=== PATIENT | female | born 1990 | race Caucasian/White ===

== ENCOUNTER 2017-05-18 19:47 | Emergency (ER) | payer BC ==
[~2017-05-18] VITALS: Wt 47.2 kg
[2017-05-18 20:08] LABS: BILIRUBIN NEGATIVE (NEGATIVE); BLOOD 1+ (NEGATIVE); CLARITY CLOUDY (CLEAR); COLOR YELLOW (YELLOW); GLUCOSE NEGATIVE (NEGATIVE); KETONE NEGATIVE (NEGATIVE); LEUKO ESTERASE TRACE (NEGATIVE); NITRITE POSITIVE (NEGATIVE); PROTEIN TRACE (NEGATIVE); SPECIFIC GRAVITY 1.015 (1.005-1.030)
[2017-05-18 20:16] LABS: BACTERIA 3+; URINE REFLEX COMMENT YES (NO); WBC 16-20 wbc/hpf (0-5)
== END 2017-05-18 20:42 | disposition home or self-care (01) ==
LOC: ED 19:47
PROVIDERS: Student in an Organized Health Care Education/Training Program
DX: N39.0 Urinary tract infection, site not specified (principal); F17.200 Nicotine dependence, unspecified, uncomplicated; Z88.2 Allergy status to sulfonamides

== ENCOUNTER 2017-06-03 16:23 | Emergency (ER) | payer BC ==
[~2017-06-03] VITALS: Ht 167.6 cm; Wt 46.3 kg
[2017-06-03 16:49] LABS: BILIRUBIN NEGATIVE (NEGATIVE); BLOOD 1+ (NEGATIVE); CLARITY SL CLOUDY (CLEAR); COLOR YELLOW (YELLOW); GLUCOSE NEGATIVE (NEGATIVE); KETONE NEGATIVE (NEGATIVE); LEUKO ESTERASE NEGATIVE (NEGATIVE); NITRITE NEGATIVE (NEGATIVE); PROTEIN 1+ (NEGATIVE); UROBILINOGEN 0.2 E.U./dl (0.2-1.0)
[2017-06-03 16:54] LABS: BACTERIA 4+; EPITHELIAL CELLS 20-25; URINE REFLEX COMMENT YES (NO); WBC 0-2 wbc/hpf (0-5)
[2017-06-03] MEDS ORDERED: PREDNISONE10 MG PO ×2 (17:11→17:13)
[2017-06-03] MEDS ORDERED: ROBITUSSIN AC 110 ML PO (17:11)
[2017-06-03] MEDS ORDERED: FLONASE ALLERG9.9 ML NAS ×2 (17:11→17:13)
[2017-06-03] MEDS ORDERED: CLARITIN10 MG PO ×2 (17:11→17:13)
== END 2017-06-03 17:17 | disposition home or self-care (01) ==
LOC: ED 16:23
PROVIDERS: Nurse Practitioner Family
DX: B34.9 Viral infection, unspecified (principal); F17.200 Nicotine dependence, unspecified, uncomplicated; Z88.2 Allergy status to sulfonamides

== ENCOUNTER 2017-06-18 17:06 | Emergency (ER) | payer BC ==
[~2017-06-18] VITALS: Ht 167.6 cm; Wt 48.5 kg
[~2017-06-18 17:06] MED LIST: CLARITIN10 MG PO; FLONASE ALLERG9.9 ML NAS; PREDNISONE10 MG PO; ROBITUSSIN AC 110 ML PO
[2017-06-18 17:31] LABS: BILIRUBIN NEGATIVE (NEGATIVE); BLOOD 2+ (NEGATIVE); CLARITY SL CLOUDY (CLEAR); COLOR YELLOW (YELLOW); GLUCOSE NEGATIVE (NEGATIVE); KETONE NEGATIVE (NEGATIVE); LEUKO ESTERASE TRACE (NEGATIVE); NITRITE NEGATIVE (NEGATIVE); PROTEIN 1+ (NEGATIVE)
[2017-06-18 17:38] LABS: WBC 21-30 wbc/hpf (0-5)
[2017-06-18 17:39] LABS: BACTERIA 2+
[2017-06-18] MEDS ORDERED: MACROBID100 M1 PO (17:40)
[2017-06-18] MEDS ORDERED: PYRIDIUM200 M1 PO (17:40)
== END 2017-06-18 20:46 | disposition home or self-care (01) ==
LOC: ED 17:06
PROVIDERS: Nurse Practitioner Family
DX: R30.0 Dysuria (principal); F17.200 Nicotine dependence, unspecified, uncomplicated; Z88.2 Allergy status to sulfonamides

== ENCOUNTER 2017-08-03 15:10 | Emergency (ER) | payer BC ==
[~2017-08-03] VITALS: Ht 167.6 cm; Wt 48.5 kg
[~2017-08-03 15:10] MED LIST changes: +MACROBID100 M1 PO; +PYRIDIUM200 M1 PO
[2017-08-03] MEDS ORDERED: ADVIL200 M1 PO (15:22)
[2017-08-03 16:03] LABS: HEMATOCRIT 40.8 % (37.0-47.0); HEMOGLOBIN 13.6 g/dl (12.0-16.0); MEAN CELL VOLUME 93.4 fl (81.0-99.0); MEAN CORPUSCULAR HGB 31.1 pg (27.0-31.0); MEAN CORPUSCULAR HGB CONC 33.3 g/dl (33.0-37.0); MEAN PLATELET VOLUME 9.7 fl (9.6-12.3); PLATELET COUNT AUTOMATED 228 10*3/uL (130-400); RED BLOOD COUNT 4.37 10*6/uL (4.10-5.10); RED CELL DISTRI WIDTH 13.4 % (0-14.5); WHITE BLOOD COUNT 16.6 10*3/uL (4.8-10.8)
[2017-08-03 16:18] LABS: BILIRUBIN NEGATIVE (NEGATIVE); BLOOD 2+ (NEGATIVE); CLARITY SL CLOUDY (CLEAR); COLOR YELLOW (YELLOW); GLUCOSE NEGATIVE (NEGATIVE); KETONE NEGATIVE (NEGATIVE); LEUKO ESTERASE 1+ (NEGATIVE); NITRITE POSITIVE (NEGATIVE); SPECIFIC GRAVITY 1.025 (1.005-1.030)
[2017-08-03 16:19] LABS: ALBUMIN 3.5 gm/dl (3.1-4.5); ALKALINE PHOSPHATASE 82 U/L (45-117); BUN 8 mg/dl (7-24); CHLORIDE 104 mmol/L (98-107); CREATININE 0.63 mg/dL (0.55-1.02); POTASSIUM 3.8 mmol/L (3.5-5.1); SGOT/AST 11 IU/L (3-35); SGPT/ALT 14 U/L (12-78); SODIUM 140 mmol/L (136-145); TOTAL PROTEIN 7.6 gm/dL (6.4-8.2)
[2017-08-03 16:28] LABS: BASOPHILS 1 % (0-1); PLATELET SUFFICIENCY NORMAL (NORMAL); TOTAL CELLS COUNTED 100 #CELLS
[2017-08-03 16:29] LABS: WBC 21-30 wbc/hpf (0-5)
[2017-08-03 16:30] LABS: BACTERIA 3+; EPITHELIAL CELLS TNTC; MUCOUS TRACE
[2017-08-03] MEDS ORDERED: AUGMENTIN 875875 MG PO (16:53)
[2017-08-03] MEDS ORDERED: ZOFRAN ODT4 MG SL (16:54)
== END 2017-08-03 17:57 | disposition home or self-care (01) ==
LOC: ED 15:10
PROVIDERS: Family Medicine Adult Medicine
DX: N12 Tubulo-interstitial nephritis, not specified as acute or chronic (principal); F17.200 Nicotine dependence, unspecified, uncomplicated; Z88.2 Allergy status to sulfonamides; Z79.899 Other long term (current) drug therapy

== ENCOUNTER 2017-09-12 18:27 | Emergency (ER) | payer BC ==
[~2017-09-12] VITALS: Ht 167.6 cm; Wt 49.4 kg
[~2017-09-12 18:27] MED LIST changes: +ADVIL200 M1 PO; +AUGMENTIN 875875 MG PO; +ZOFRAN ODT4 MG SL
[2017-09-12 19:44] LABS: BILIRUBIN NEGATIVE (NEGATIVE); BLOOD TRACE-INTACT (NEGATIVE); CLARITY CLEAR (CLEAR); COLOR YELLOW (YELLOW); GLUCOSE NEGATIVE (NEGATIVE); KETONE NEGATIVE (NEGATIVE); LEUKO ESTERASE NEGATIVE (NEGATIVE); NITRITE NEGATIVE (NEGATIVE); PH 6.5 (5.0-9.0); SPECIFIC GRAVITY 1.015 (1.005-1.030)
[2017-09-12 19:52] LABS: RBC 0-2 rbc/hpf (0-2); WBC 0-2 wbc/hpf (0-5)
[2017-09-12 20:40] LABS: BASO % 0.3 % (0.0-1.0); EOS # 0.1 10*3/uL (0.0-0.4); EOS % 0.4 % (1.0-4.0); HEMATOCRIT 38.7 % (37.0-47.0); HEMOGLOBIN 13.1 g/dl (12.0-16.0); LYMPH # 2.3 10*3/uL (1.3-4.4); LYMPH % 15.2 % (27.0-41.0); MEAN CELL VOLUME 91.7 fl (81.0-99.0); MEAN CORPUSCULAR HGB CONC 33.9 g/dl (33.0-37.0); MEAN PLATELET VOLUME 9.8 fl (9.6-12.3); MONO # 1.1 10*3/uL (0.1-1.0); MONO % 7.1 % (3.0-9.0); NEUT # 11.5 10*3/uL (2.3-7.9); NEUT % 76.5 % (47.0-73.0); PLATELET COUNT AUTOMATED 205 10*3/uL (130-400); RED BLOOD COUNT 4.22 10*6/uL (4.10-5.10)
[2017-09-12 20:54] LABS: ALBUMIN 3.9 gm/dl (3.1-4.5); ALKALINE PHOSPHATASE 91 U/L (45-117); BUN 10 mg/dl (7-24); CHLORIDE 106 mmol/L (98-107); CREATININE 0.65 mg/dL (0.55-1.02); POTASSIUM 3.7 mmol/L (3.5-5.1); SGOT/AST 11 IU/L (3-35); SGPT/ALT 15 U/L (12-78); SODIUM 137 mmol/L (136-145); TOTAL PROTEIN 7.5 gm/dL (6.4-8.2)
[2017-09-12] MEDS ORDERED: CYCLOBENZAPRINE5 M3 PO (22:59)
== END 2017-09-12 23:04 | disposition home or self-care (01) ==
LOC: ED 18:27
PROVIDERS: Nurse Practitioner Family
DX: S39.012A Strain of muscle, fascia and tendon of lower back, initial encounter (principal); B34.9 Viral infection, unspecified; F17.200 Nicotine dependence, unspecified, uncomplicated; Z88.2 Allergy status to sulfonamides; Z79.899 Other long term (current) drug therapy; R35.0 Frequency of micturition; X58.XXXA Exposure to other specified factors, initial encounter; Y93.89 Activity, other specified; Y92.89 Other specified places as the place of occurrence of the external cause; Y99.8 Other external cause status

== ENCOUNTER 2017-09-14 13:51 | Emergency (ER) | payer BC ==
[~2017-09-14] VITALS: Ht 167.6 cm; Wt 49.4 kg
[~2017-09-14 13:51] MED LIST changes: +CYCLOBENZAPRINE5 M3 PO
[2017-09-14] MEDS ORDERED: AMOXICILLIN500 M3 PO (14:26)
== END 2017-09-14 14:37 ==
LOC: ED 13:51
DX: J02.9 Acute pharyngitis, unspecified (principal); F17.200 Nicotine dependence, unspecified, uncomplicated; Z98.890 Other specified postprocedural states; Z79.899 Other long term (current) drug therapy; Z88.2 Allergy status to sulfonamides

== ENCOUNTER 2018-02-18 16:33 | Emergency (ER) | payer BC ==
[~2018-02-18] VITALS: Ht 157.4 cm; Wt 45.4 kg
[~2018-02-18 16:33] MED LIST changes: +AMOXICILLIN500 M3 PO
[2018-02-18 17:12] LABS: BASO % 0.4 % (0.0-1.0); EOS # 0.2 10*3/uL (0.0-0.4); EOS % 1.3 % (1.0-4.0); HEMATOCRIT 44.4 % (37.0-47.0); HEMOGLOBIN 15.3 g/dl (12.0-16.0); LYMPH # 2.8 10*3/uL (1.3-4.4); LYMPH % 24.7 % (27.0-41.0); MEAN CELL VOLUME 94.3 fl (81.0-99.0); MEAN CORPUSCULAR HGB 32.5 pg (27.0-31.0); MEAN CORPUSCULAR HGB CONC 34.5 g/dl (33.0-37.0); MEAN PLATELET VOLUME 9.5 fl (9.6-12.3); MONO % 8.5 % (3.0-9.0); NEUT # 7.3 10*3/uL (2.3-7.9); NEUT % 64.7 % (47.0-73.0); PLATELET COUNT AUTOMATED 243 10*3/uL (130-400); RED BLOOD COUNT 4.71 10*6/uL (4.10-5.10); RED CELL DISTRI WIDTH 13.1 % (0-14.5); WHITE BLOOD COUNT 11.3 10*3/uL (4.8-10.8)
[2018-02-18 17:30] LABS: ALBUMIN 4.1 gm/dl (3.1-4.5); ALKALINE PHOSPHATASE 83 U/L (45-117); BUN 7 mg/dl (7-24); CHLORIDE 105 mmol/L (98-107); CREATININE 0.75 mg/dL (0.55-1.02); FREE T4 1.07 ng/dl (0.76-1.46); POTASSIUM 4.1 mmol/L (3.5-5.1); SGOT/AST 14 IU/L (3-35); SGPT/ALT 16 U/L (12-78); SODIUM 138 mmol/L (136-145); TOTAL PROTEIN 7.8 gm/dL (6.4-8.2)
[2018-02-18 17:31] LABS: TROPONIN I < 0.015 ng/ml (<0.045)
[2018-02-18 17:36] LABS: THYROID STIM HORMONE (HS) 0.742 uIU/ml (0.358-4.75)
[2018-02-18 17:38] LABS: BILIRUBIN NEGATIVE (NEGATIVE); BLOOD NEGATIVE (NEGATIVE); CLARITY SL CLOUDY (CLEAR); COLOR YELLOW (YELLOW); GLUCOSE NEGATIVE (NEGATIVE); KETONE NEGATIVE (NEGATIVE); LEUKO ESTERASE NEGATIVE (NEGATIVE); NITRITE NEGATIVE (NEGATIVE); SPECIFIC GRAVITY 1.025 (1.005-1.030); UROBILINOGEN 0.2 E.U./dl (0.2-1.0)
[2018-02-18 17:43] LABS: BACTERIA 2+; EPITHELIAL CELLS 15-20; RBC 0-2 rbc/hpf (0-2)
[2018-02-18 17:44] LABS: MUCOUS TRACE
[2018-02-18 17:47] LABS: URINE AMPHETAMINES < 1000 (1000ng/ml); URINE BARBITURATES < 200 (200ng/ml); URINE BENZODIAZEPINES < 200 (200ng/ml); URINE CANNABINOIDS (THC) < 50 (50ng/ml); URINE COCAINE < 300 (300ng/ml); URINE METHADONE < 300 (300ng/ml); URINE OPIATES < 300 (300ng/ml)
[2018-02-18 17:49] LABS: URINE PHENCYCLIDINE < 25 (25ng/ml)
== END 2018-02-18 18:44 | disposition home or self-care (01) ==
LOC: ED 16:33
PROVIDERS: Physician Assistant
DX: R00.2 Palpitations (principal); F17.200 Nicotine dependence, unspecified, uncomplicated; Z88.2 Allergy status to sulfonamides; Z79.899 Other long term (current) drug therapy

== ENCOUNTER 2018-03-31 10:07 | Emergency (ER) | payer BC ==
[~2018-03-31] VITALS: Ht 167.6 cm; Wt 48.1 kg
[2018-03-31] MEDS ORDERED: ROBITUSSIN DM 105 ML PO (13:01)
[2018-03-31] MEDS ORDERED: PREDNISONE20 M1 PO (13:01)
[2018-03-31] MEDS ORDERED: ZITHROMAX250 MG PO (13:01)
== END 2018-03-31 13:12 | disposition home or self-care (01) ==
LOC: ED 10:07
DX: J20.9 Acute bronchitis, unspecified (principal); F17.200 Nicotine dependence, unspecified, uncomplicated; Z98.890 Other specified postprocedural states; Z79.899 Other long term (current) drug therapy; Z88.2 Allergy status to sulfonamides